=== PATIENT | female | born 1965 | race Caucasian/White ===

== ENCOUNTER 2019-09-27 21:35 | Emergency (ER) | payer MEDICAID ==
[~2019-09-27] VITALS: Ht 160 cm; Wt 79.4 kg
--- NOTE | 2019-09-27 21:35 | NUR ---
in bedside for MSE
--- NOTE | 2019-09-27 21:35 | NUR ---
Patient arrived on unit for chest pain as well pain in her head and eyes, EKG done and given to MD, IV place in right forearm 20 g, patient states pain level 10/10
[2019-09-27] MEDS ORDERED: HYDROCODONE/APAP 5-325MG TABLET PO ONE (21:45)
[2019-09-27] MEDS ORDERED: NITROGLYCERIN OINT 1 GM PACKET TP ONE ×2 (21:45→21:51)
[2019-09-27] MEDS ORDERED: ASPIRIN 81 MG TAB.CHEW PO ONE (21:45)
[2019-09-27] MEDS ORDERED: LORAZEPAM 0.5 MG TABLET PO ONE (21:45)
[2019-09-27] MEDS ORDERED: NITROGLYCERIN 0.4 MG/TAB BOTTLE SL ONE ×2 (21:45→21:50)
[2019-09-27] MEDS ORDERED: ASPIRIN 81 MG TAB.CHEW ONE (21:49)
[2019-09-27] MEDS ORDERED: HYDROCODONE/APAP 5-325MG TABLET ONE (21:50)
[2019-09-27] MEDS ORDERED: LORAZEPAM 1 MG TABLET ONE (21:50)
[2019-09-27 22:02] LABS: BASOPHILS % (AUTO) 0.5 % (0.0-2.0); EOSINOPHILS # (AUTO) 0.1 K/uL (0.0-0.7); EOSINOPHILS % (AUTO) 1.6 % (0.0-7.0); HEMATOCRIT 42.6 % (31.2-41.9); HEMOGLOBIN 13.6 g/dL (10.9-14.3); LYMPHOCYTES # (AUTO) 3.6 K/uL (20.0-40.0); MEAN CORPUSCULAR HEMOGLOBIN 26.1 uug (24.7-32.8); MEAN CORPUSCULAR HGB CONC 32 g/dL (32.3-35.6); MEAN CORPUSCULAR VOLUME 81.5 fL (75.5-95.3); MONOCYTES # (AUTO) 0.6 K/uL (2.0-10.0); NEUTROPHILS # (AUTO) 4.8 K/uL (1.8-8.9); NEUTROPHILS % (AUTO) 51.9 % (38.5-71.5); PLATELET COUNT (AUTO) 263 K/uL (179-408); RED BLOOD CELL COUNT(AUTO) 5.23 MIL/uL (3.63-4.92); WHITE BLOOD COUNT (AUTO) 9.2 K/uL (3.8-11.8)
[2019-09-27] MEDS ORDERED: INSU100I34 SQ (22:05)
[2019-09-27] MEDS ORDERED: INSU100I26 SQ (22:05)
[2019-09-27] MEDS ORDERED: ALBU6.7H9 INH (22:05)
[2019-09-27] MEDS ORDERED: ASPI81TA31 PO (22:05)
[2019-09-27] MEDS ORDERED: LOSA100T31 PO (22:05)
[2019-09-27] MEDS ORDERED: AMLO10TA7 PO (22:05)
[2019-09-27] MEDS ORDERED: ONDANSETRON 4 MG/2 ML VIAL ONE (22:08)
--- NOTE | 2019-09-27 22:11 | NUR ---
Vitals with in normal limits, 124/74, 99% on room air, 84 heart rate, 20 respirations
[2019-09-27] MEDS ORDERED: ONDANSETRON 4 MG/2 ML VIAL IV ONE (22:15)
--- NOTE | 2019-09-27 22:16 | NUR ---
x3 doses of nitrostat given sublingual without relief from chest pain
[2019-09-27] MEDS ORDERED: MORPHINE SULFATE 4 MG/1 ML DISP.SYRIN ONE (22:22)
[2019-09-27 22:25] LABS: BILIRUBIN,DIRECT 0.1 mg/dL (0.0-0.2); BILIRUBIN,TOTAL 0.6 mg/dL (0.2-1.0); CREATININE 1.7 mg/dL (0.6-1.3); POTASSIUM 4.1 mmol/L (3.5-5.1); TOTAL PROTEIN, SERUM 7.4 g/dL (6.4-8.2)
[2019-09-27] MEDS ORDERED: diphenhydrAMINE 50 MG/1 ML VIAL ONE (22:26)
[2019-09-27] MEDS ORDERED: MORPHINE SULFATE 4 MG/1 ML DISP.SYRIN IV ONE (22:30)
--- NOTE | 2019-09-27 22:35 | NUR ---
states pain level is 8/, B/P: 124/75
--- NOTE | 2019-09-27 22:47 | NUR ---
Patient noted resting in bed with eyes closed, no facial cues of pain at this time, no signs of distress noted
[2019-09-27] MEDS ORDERED: diphenhydrAMINE 50 MG/1 ML VIAL IV ONE (23:00)
--- NOTE | 2019-09-27 23:07 | NUR ---
Patient continues to rest in bed without any distress or complaints of pain at this time
[2019-09-27] MEDS ORDERED: HYDROMORPHONE HCL 2 MG TABLET PO ONE (23:15)
[2019-09-27] MEDS ORDERED: HYDROMORPHONE HCL 2 MG TABLET ONE (23:26)
--- NOTE | 2019-09-27 23:48 | NUR ---
Patient left with Radiology for CT at this time
--- NOTE | 2019-09-28 00:15 | NUR ---
Patient returned from CT at this time, noted resting with eyes closed, no facial cues of pain, no signs of distress
--- NOTE | 2019-09-28 01:32 | NUR ---
Patient discharged to home in stable condition. Noted ambulating in stable manner, daughter outside to drive her home. all belongings taken with patient. Rx given. Instructed not to drive while taking these medications. No signs of distress on discharge. Instructed to follow up with PCP. Written and verbal after care instructions given. Patient verbalizes understanding of instructions. Stressed follow up or return to ER for worsening s/s.
[2019-09-28 01:38] VITALS: BP 114/72
== END 2019-09-28 01:30 | disposition home or self-care (01) ==
LOC: ER 21:35
DX: R07.9 Chest pain, unspecified (principal); I25.2 Old myocardial infarction; I10 Essential (primary) hypertension; Z88.6 Allergy status to analgesic agent; E78.00 Pure hypercholesterolemia, unspecified; Z88.0 Allergy status to penicillin; G89.29 Other chronic pain; Z76.5 Malingerer [conscious simulation]; F17.200 Nicotine dependence, unspecified, uncomplicated; E11.9 Type 2 diabetes mellitus without complications; Z79.4 Long term (current) use of insulin; Z79.82 Long term (current) use of aspirin; Z79.899 Other long term (current) drug therapy; F43.9 Reaction to severe stress, unspecified
CPT/HCPCS: 36415 ×2; 70450; 71045; 80048; 80076; 82962; 83880; 84484 ×2; 85025; 85379; 85730; 93005; 96374; 96375; 99285; J1200; J2270; J2405; 70030-TC; A4663

== ENCOUNTER 2020-05-16 21:40 | Emergency (ER) | payer MEDICAID ==
[~2020-05-16] VITALS: Ht 160 cm; Wt 77.1 kg
[~2020-05-16 21:40] MED LIST: ALBU6.7H9 INH; AMLO10TA59 PO; ASPI81TA31 PO; INSU100I26 SQ; INSU100I34 SQ; LOSA100T31 PO
[2020-05-16] MEDS ORDERED: IV NORMAL SALINE 1000 ML BAG IV ONE (22:30)
[2020-05-16 23:03] LABS: BASOPHILS # (AUTO) 0.1 K/uL (0.0-8.0); BASOPHILS % (AUTO) 0.8 % (0.0-2.0); EOSINOPHILS # (AUTO) 0.4 K/uL (0.0-0.7); EOSINOPHILS % (AUTO) 5.2 % (0.0-7.0); HEMATOCRIT 41.9 % (31.2-41.9); HEMOGLOBIN 13.6 g/dL (10.9-14.3); LYMPHOCYTES # (AUTO) 3.1 K/uL (20.0-40.0); LYMPHOCYTES % (AUTO) 42.1 % (20.5-51.5); MEAN CORPUSCULAR HEMOGLOBIN 25.9 uug (24.7-32.8); MEAN CORPUSCULAR HGB CONC 33 g/dL (32.3-35.6); MEAN CORPUSCULAR VOLUME 79.6 fL (75.5-95.3); MONOCYTES # (AUTO) 0.5 K/uL (2.0-10.0); MONOCYTES % (AUTO) 6.1 % (0.0-11.0); NEUTROPHILS # (AUTO) 3.4 K/uL (1.8-8.9); NEUTROPHILS % (AUTO) 45.8 % (38.5-71.5); PLATELET COUNT (AUTO) 351 K/uL (179-408); RED BLOOD CELL COUNT(AUTO) 5.26 MIL/uL (3.63-4.92); WHITE BLOOD COUNT (AUTO) 7.4 K/uL (3.8-11.8)
[2020-05-16 23:14] LABS: CREATININE 1.1 mg/dL (0.6-1.3); POTASSIUM 4.3 mmol/L (3.5-5.1)
[2020-05-16 23:20] LABS: BILIRUBIN,DIRECT 0.1 mg/dL (0.0-0.2); BILIRUBIN,TOTAL 0.4 mg/dL (0.2-1.0); TOTAL PROTEIN, SERUM 8.4 g/dL (6.4-8.2)
[2020-05-16] MEDS ORDERED: IV NORMAL SALINE 250 ML IV ONE (23:56)
[2020-05-16] MEDS ORDERED: SWABABLE VALVE TRANSFER SET EA MC ONE (23:56)
[2020-05-16] MEDS ORDERED: IOHEXOL 300MG/ML 100 ML INFUS..BTL ONE (23:56)
[2020-05-17] MEDS ORDERED: PANTOPRAZOLE SODIUM 40 MG VIAL ONE (00:58)
[2020-05-17] MEDS ORDERED: diphenhydrAMINE 50 MG/1 ML VIAL IV ONE (01:00)
[2020-05-17] MEDS ORDERED: PANTOPRAZOLE SODIUM 40 MG VIAL IV ONE (01:00)
[2020-05-17] MEDS ORDERED: ONDANSETRON 4 MG/2 ML VIAL IV ONE (01:00)
[2020-05-17] MEDS ORDERED: MORPHINE SULFATE 2 MG/1 ML DISP.SYRIN IV ONE ×2 (01:00→02:15)
[2020-05-17] MEDS ORDERED: ONDANSETRON 4 MG/2 ML VIAL ONE (01:14)
[2020-05-17] MEDS ORDERED: diphenhydrAMINE 50 MG/1 ML VIAL ONE (01:14)
[2020-05-17] MEDS ORDERED: MORPHINE SULFATE 2 MG/1 ML DISP.SYRIN ONE ×2 (01:14→02:22)
[2020-05-17] MEDS ORDERED: METO-295 PO (02:26)
[2020-05-17] MEDS ORDERED: PANT40TA2 PO (02:26)
[2020-05-17] MEDS ORDERED: HYDR-4209 PO (02:26)
--- NOTE | 2020-05-17 02:53 | NUR ---
IV DISCONTINUED, CATHETER INTACT. Patient discharged to home in stable condition. Written and verbal after care instructions given. Patient verbalizes understanding of instructions. Stressed follow up or return to ER for worsening s/s.
[2020-05-17 02:54] VITALS: BP 150/94
== END 2020-05-17 02:54 | disposition home or self-care (01) ==
LOC: ER 21:46
DX: R10.11 Right upper quadrant pain (principal); R11.10 Vomiting, unspecified; E87.1 Hypo-osmolality and hyponatremia; E11.65 Type 2 diabetes mellitus with hyperglycemia; Z79.4 Long term (current) use of insulin
CPT/HCPCS: 74177; 76705; 80048; 80076; 83605; 83690; 85025; 93005; 96361; 96374; 96375; 96376; 99285; C9113; J1200; J2270 ×2; J2405; Q9967; J7050

== ENCOUNTER 2020-06-03 00:49 | Emergency (ER) | payer MEDICAID, OTHER ==
[~2020-06-03] VITALS: Ht 160 cm; Wt 77.1 kg
[~2020-06-03 00:49] MED LIST changes: +HYDR-4209 PO; +METO-295 PO; +PANT40TA2 PO
--- NOTE | 2020-06-03 00:55 | NUR ---
Patient came in to the ER with her daughter complaining of chest pain, high blood sugar, and a draining cyst. Patient is A/O x3 and seems to be concerned over her condition. VS are stable, blood sugar reads "HI" on the accucheck indicitave of a BS possibly over 600. Sinus rhythm on the monitor. The cyst is located on her left lower abdomen within the abdominal fold, it is open and weaping fluid.
[2020-06-03] MEDS ORDERED: LIDOCAINE 2%-EPI 1:100,000 20 ML VIAL ONE (01:55)
[2020-06-03 01:56] LABS: *BILIRUBIN,URIN NEGATIVE (NEGATIVE); *CLARITY,URINE CLEAR (CLEAR); *KETONES,URINE NEGATIVE (NEGATIVE); *UROBILINOGEN,URINE 0.2 E.U./dl (NORMAL); LEUKOCYTE ESTERASE ,URINE 1+ (NEGATIVE); NITRITE, URINE NEGATIVE (NEGATIVE)
[2020-06-03 01:57] LABS: BASOPHILS # (AUTO) 0.1 K/uL (0.0-8.0); BASOPHILS % (AUTO) 1.4 % (0.0-2.0); EOSINOPHILS # (AUTO) 0.4 K/uL (0.0-0.7); EOSINOPHILS % (AUTO) 4.2 % (0.0-7.0); HEMATOCRIT 39.1 % (31.2-41.9); HEMOGLOBIN 12.6 g/dL (10.9-14.3); LYMPHOCYTES % (AUTO) 29.4 % (20.5-51.5); MEAN CORPUSCULAR HEMOGLOBIN 26.2 uug (24.7-32.8); MEAN CORPUSCULAR HGB CONC 32 g/dL (32.3-35.6); MEAN CORPUSCULAR VOLUME 81.5 fL (75.5-95.3); MONOCYTES # (AUTO) 0.7 K/uL (2.0-10.0); MONOCYTES % (AUTO) 6.6 % (0.0-11.0); NEUTROPHILS % (AUTO) 58.4 % (38.5-71.5); PLATELET COUNT (AUTO) 248 K/uL (179-408); RED BLOOD CELL COUNT(AUTO) 4.79 MIL/uL (3.63-4.92); WHITE BLOOD COUNT (AUTO) 10.3 K/uL (3.8-11.8)
[2020-06-03 01:58] LABS: MAGNESIUM 1.8 mg/dL (1.8-2.4)
[2020-06-03 02:03] LABS: CREATININE 1.2 mg/dL (0.6-1.3)
[2020-06-03 02:07] LABS: *BLOOD, URINE TRACE (NEGATIVE); UGLUCOSE 2+ (NEGATIVE)
[2020-06-03 02:08] LABS: *COLOR,URINE STRAW (YELLOW)
[2020-06-03 02:12] LABS: BILIRUBIN,DIRECT 0.1 mg/dL (0.0-0.2); BILIRUBIN,TOTAL 0.3 mg/dL (0.2-1.0); TOTAL PROTEIN, SERUM 7.4 g/dL (6.4-8.2)
[2020-06-03 02:17] LABS: BACTERIA,URINE MODERATE /HPF (NONE SEEN); SQUAMOUS EPITHELIAL CELL,UR MODERATE /HPF (NONE SEEN); WBC,URINE 20-50 /HPF (0-3)
[2020-06-03] MEDS: IV NORMAL SALINE 1000 ML BAG IV ONE ×2 (02:17→03:50)
[2020-06-03] MEDS: LIDOCAINE 2%-EPI 1:100,000 20 ML VIAL IJ ONE (02:17)
[2020-06-03] MEDS: ASPIRIN 81 MG TAB.CHEW PO ONE (02:20)
--- NOTE | 2020-06-03 02:20 | NUR ---
Dr. Pizano completed a lancing of the cyst on the lower left abdomen. Minimal blood loss through the procedure. Wound packed with iodoform packing and wound cleaned with chlorhexadine and dressed with 4x4 gauze and taped with paper tape. Patient tolerated procedure without complications or discomfort.
[2020-06-03] MEDS ORDERED: ASPIRIN EC 81 MG TABLET.DR PO ONE (02:26)
[2020-06-03] MEDS: IV NORMAL SALINE 500 ML BAG IV ONE (02:30)
[2020-06-03] MEDS ORDERED: OXYCODONE/APAP 5-325 MG TABLET ONE (02:38)
[2020-06-03] MEDS ORDERED: PIPERACILLIN SODIUM/TAZO 3.375 GM VIAL ONE (02:38)
[2020-06-03] MEDS: PIPERACILLIN SODIUM/TAZOBACTAM 3.375 G in IV DEXTROSE 5% 50 ML IV ONE (02:49)
[2020-06-03] MEDS: OXYCODONE/APAP 5-325 MG TABLET PO ONE ×2 (02:49→03:00)
--- NOTE | 2020-06-03 02:55 | NUR ---
Went over medication reconcilation with patient.
[2020-06-03] MEDS ORDERED: AMOX-430 PO (04:40)
[2020-06-03] MEDS ORDERED: OXYC-128 PO (04:40)
[2020-06-03] MEDS ORDERED: ONDA4TAB5 PO (04:49)
--- NOTE | 2020-06-03 04:50 | NUR ---
Patient discharged to home in stable condition. Written and verbal wound care instructions given. Patient verbalizes understanding of instructions. Stressed follow up or return to ER for worsening s/s. Patient discharged without SOB or signs of distress. Dr. Pizano deemed third liter of normal saline not necessary due to the improvint condition of the patient, and cleared he patient for discharge.
[2020-06-03 05:06] VITALS: BP 161/111
== END 2020-06-03 04:50 | disposition home or self-care (01) ==
LOC: ER 00:58
DX: L02.211 Cutaneous abscess of abdominal wall (principal); E11.65 Type 2 diabetes mellitus with hyperglycemia; Z79.4 Long term (current) use of insulin; J45.909 Unspecified asthma, uncomplicated; K21.9 Gastro-esophageal reflux disease without esophagitis; E78.00 Pure hypercholesterolemia, unspecified; Z88.5 Allergy status to narcotic agent; Z88.0 Allergy status to penicillin; F17.200 Nicotine dependence, unspecified, uncomplicated; R07.89 Other chest pain; R94.31 Abnormal electrocardiogram [ECG] [EKG]
CPT/HCPCS: 10060; 36415; 71045; 80048; 80076; 81001; 82009; 82962 ×2; 83735; 83880; 84484; 85025; 87040; 87070; 87077; 87086; 93005; 96361; 96365; 99285; J2543; J7060; 70030-TC; A4663; J7030

== ENCOUNTER 2021-04-19 18:32 | Emergency (ER) | payer OTHER ==
[~2021-04-19] VITALS: Ht 160 cm; Wt 81.6 kg
[~2021-04-19 18:32] MED LIST changes: +AMOX-430 PO; +ONDA4TAB5 PO; +OXYC-128 PO
[2021-04-19] MEDS: LIDOCAINE 1%-EPI 1:100,000 20 ML VIAL IJ ONE (20:00)
--- NOTE | 2021-04-19 21:00 | NUR ---
Dr Huerta into do I/D with female staff nurse assisting.
[2021-04-19] MEDS ORDERED: FAMO-132 PO (21:56)
[2021-04-19] MEDS ORDERED: SULF1TAB48 PO (21:56)
[2021-04-19] MEDS ORDERED: GABA800T11 PO (21:56)
--- NOTE | 2021-04-19 22:01 | NUR ---
Patient discharged to home in stable condition. Written and verbal after care instructions given. Patient verbalizes understanding of instructions. Stressed follow up or return to ER for worsening s/s.
[2021-04-19 22:02] VITALS: BP 150/92
== END 2021-04-19 22:02 | disposition home or self-care (01) ==
LOC: ER 18:34
DX: L02.215 Cutaneous abscess of perineum (principal); E11.42 Type 2 diabetes mellitus with diabetic polyneuropathy; E78.00 Pure hypercholesterolemia, unspecified; Z79.4 Long term (current) use of insulin; Z79.899 Other long term (current) drug therapy; Z88.0 Allergy status to penicillin; Z88.6 Allergy status to analgesic agent; K21.9 Gastro-esophageal reflux disease without esophagitis; J45.909 Unspecified asthma, uncomplicated; F17.200 Nicotine dependence, unspecified, uncomplicated; R03.0 Elevated blood-pressure reading, without diagnosis of hypertension
CPT/HCPCS: 56405; 99283; J3490; A4663

== ENCOUNTER 2021-04-21 19:31 | Emergency (ER) | payer OTHER ==
[~2021-04-21] VITALS: Ht 160 cm; Wt 81.6 kg
[~2021-04-21 19:31] MED LIST changes: +FAMO-132 PO; +GABA800T11 PO; +SULF1TAB48 PO
--- NOTE | 2021-04-21 20:10 | NUR ---
Pt came to ER for abcess check in pelvic region. Able to ambulate without assistance. Speech clear, speaks in complete sentences. Denies SOB or chest pain.
--- NOTE | 2021-04-21 20:22 | NUR ---
Dr. Clifford at bedside for MSE
[2021-04-21] MEDS ORDERED: CEPH500T PO (20:45)
[2021-04-21] MEDS ORDERED: ALBU0.63 NEB (20:45)
--- NOTE | 2021-04-21 20:45 | NUR ---
JEAN CROW FOR PERINEAL WOUND CARE/TX.
--- NOTE | 2021-04-21 21:10 | NUR ---
Patient discharged to home in stable condition. Written and verbal after care instructions given. Patient verbalizes understanding of instructions. Stressed follow up or return to ER for worsening s/s. No changes in LOC. Wound care completed, covered in clean, dry dressing.
[2021-04-21 21:18] VITALS: BP 160/86
[2021-04-21] MEDS ORDERED: LIDOCAINE 1%-EPI 1:100,000 20 ML VIAL IJ ONE (23:15)
== END 2021-04-21 21:19 | disposition home or self-care (01) ==
LOC: ER 19:32
DX: J45.909 Unspecified asthma, uncomplicated (principal); F17.210 Nicotine dependence, cigarettes, uncomplicated; L02.215 Cutaneous abscess of perineum; Z88.6 Allergy status to analgesic agent; Z88.1 Allergy status to other antibiotic agents; E11.9 Type 2 diabetes mellitus without complications; Z79.4 Long term (current) use of insulin
CPT/HCPCS: A4663; J3490

== ENCOUNTER 2021-04-23 20:23 | Emergency (ER) | payer OTHER ==
[~2021-04-23] VITALS: Ht 160 cm; Wt 81.6 kg
[~2021-04-23 20:23] MED LIST changes: +ALBU0.63 NEB; +CEPH500T PO
[2021-04-23] MEDS ORDERED: ALBUTEROL SULFATE 2.5 MG/3 ML NEBU NEB ONE (21:00)
[2021-04-23] MEDS ORDERED: IPRATROPIUM BROMIDE 0.5 MG/2.5 ML NEBU NEB ONE (21:00)
--- NOTE | 2021-04-23 21:04 | NUR ---
asssumed care of pt, who c/o increased work of breathing after inhaling "dust". reports discoloured sputum and productive cough. pt on room air, speaking in full sentences. pt evaluated by MD and RN, treatment ordered, RT notified. placed on continuous pulse oximetry. pt is alert and oriented, NAD noted
[2021-04-23] MEDS ORDERED: ALBU2.5V38 NEB (21:17)
[2021-04-23] MEDS ORDERED: IPRATROPIUM BROMIDE 0.5 MG/2.5 ML NEBU ONE (21:23)
[2021-04-23] MEDS ORDERED: ALBUTEROL SULFATE 2.5 MG/3 ML NEBU ONE (21:23)
--- NOTE | 2021-04-23 21:54 | NUR ---
breathing TX completed, pt reports substantial improvement in breathing after administration by RT of MD ordered medications, continues to speakin full sentences, without obvious distress while on room air. MD to bedside to reevaluate pt. pt would like abcess evaluated, performed in the prescence of female chaperion
[2021-04-23 22:03] VITALS: BP 142/76
--- NOTE | 2021-04-23 22:03 | NUR ---
Patient discharged to home in stable condition. MD discussed, at length with pt and provided written after care instructions, including resources to better manage her diabetes, as well as ACI for her primary compliant of lung discomfort. MD and RN stressed importance of follow up after visit with PMD and when to return to ER for worsening S/S. pt verbalised understanding of all instructions given and is able to identify in written instruction where to find information provided. pt ambulated out of dept with steady gait under her own power, NAD noted
== END 2021-04-23 22:08 | disposition home or self-care (01) ==
LOC: ER 20:25
DX: J98.01 Acute bronchospasm (principal); L02.215 Cutaneous abscess of perineum; E11.9 Type 2 diabetes mellitus without complications; Z79.4 Long term (current) use of insulin; F17.210 Nicotine dependence, cigarettes, uncomplicated; E78.00 Pure hypercholesterolemia, unspecified; Z79.899 Other long term (current) drug therapy; Z88.6 Allergy status to analgesic agent; Z88.1 Allergy status to other antibiotic agents
CPT/HCPCS: A4663; J3590

== ENCOUNTER 2021-07-15 22:05 | Emergency (ER) | payer OTHER ==
[~2021-07-15] VITALS: Ht 160 cm; Wt 81.6 kg
[~2021-07-15 22:05] MED LIST changes: +ALBU2.5V38 NEB
--- NOTE | 2021-07-15 22:34 | NUR ---
Dr. Soliz at bedside for MSE.
--- NOTE | 2021-07-15 23:07 | NUR ---
Xray at bedside.
[2021-07-15 23:29] LABS: HEMATOCRIT 41.6 % (31.2-41.9); MEAN CORPUSCULAR HEMOGLOBIN 27.9 uug (24.7-32.8); MEAN CORPUSCULAR VOLUME 83.9 fL (75.5-95.3); PLATELET COUNT (AUTO) 228 K/uL (179-408)
[2021-07-15 23:37] LABS: ALANINE AMINOTRANSFERASE 26 U/L (14-59); ALKALINE PHOSPHATASE 136 U/L (50-136); ASPARTATE AMINOTRANSFERASE 13 U/L (15-37); BILIRUBIN,TOTAL 0.3 mg/dL (0.2-1.0); CARBON DIOXIDE 26 mmol/L (21-32); CHLORIDE 100 mmol/L (98-107); CREATININE 1.2 mg/dL (0.6-1.3); POTASSIUM 4.2 mmol/L (3.5-5.1); TOTAL PROTEIN, SERUM 6.6 g/dL (6.4-8.2); UREA NITROGEN, BLOOD 14 mg/dL (7-18)
[2021-07-15 23:59] LABS: GLUCOSE 443 mg/dL (74-106)
[2021-07-16] MEDS ORDERED: INSULIN REGULAR, HUMAN 300 UNIT/3 ML VIAL SQ ONE
[2021-07-16] MEDS ORDERED: HYDROCODONE/APAP 10-325 MG TABLET PO ONE
--- NOTE | 2021-07-16 00:11 | NUR ---
Ultrasound at bedside.
[2021-07-16] MEDS ORDERED: HYDROCODONE/APAP 10-325 MG TABLET ONE (00:12)
[2021-07-16] MEDS ORDERED: INSULIN REGULAR, HUMAN 300 UNIT/3 ML VIAL ONE (00:13)
--- NOTE | 2021-07-16 01:03 | NUR ---
Patient does not wish to proceed with medical care recommended by Dr. Soliz. Patient given information related to possible complications, up to and including , which could occur as a result of leaving the hospital at this time. Patient verbalizes understanding of risks involved due to leaving against medical advice. Patient has signed AMA form.
[2021-07-16] MEDS ORDERED: VALA10002 PO (01:14)
[2021-07-16] MEDS ORDERED: VALACYCLOVIR HCL 500 MG TABLET PO ONE (01:15)
[2021-07-16] MEDS ORDERED: VALACYCLOVIR HCL 500 MG TABLET ONE (01:16)
[2021-07-16] MEDS ORDERED: VALA100026 PO (02:28)
[2021-07-16 02:34] VITALS: BP 148/90
== END 2021-07-16 02:34 | disposition left against medical advice (07) ==
LOC: ER 22:07
DX: R60.0 Localized edema (principal); B00.1 Herpesviral vesicular dermatitis; R07.81 Pleurodynia; Z20.822 Contact with and (suspected) exposure to COVID-19; K80.20 Calculus of gallbladder without cholecystitis without obstruction; I10 Essential (primary) hypertension; Z53.29 Procedure and treatment not carried out because of patient's decision for other reasons; E66.01 Morbid (severe) obesity due to excess calories; Z68.31 Body mass index [BMI] 31.0-31.9, adult; F17.210 Nicotine dependence, cigarettes, uncomplicated; E11.65 Type 2 diabetes mellitus with hyperglycemia; Z79.4 Long term (current) use of insulin; Z79.82 Long term (current) use of aspirin; Z79.899 Other long term (current) drug therapy; E78.00 Pure hypercholesterolemia, unspecified
CPT/HCPCS: 36415; 71111; 76705; 80053; 82009; 84484; 85025; 87426; 93005; 96372; 99285; J1815

== ENCOUNTER 2023-04-11 19:18 | Emergency (ER) | payer MEDICAID, OTHER ==
[~2023-04-11] VITALS: Ht 160 cm; Wt 73.9 kg
[~2023-04-11 19:18] MED LIST changes: +VALA10002 PO; +VALA100026 PO
[2023-04-11] MEDS ORDERED: KETOROLAC TROMETHAMINE 15 MG INJ IVP ONE (20:30)
[2023-04-11 20:46] LABS: BASOPHILS # (AUTO) 0.2 K/UL (0.0-0.2); BASOPHILS % (AUTO) 3.6 % (0.0-2.0); EOSINOPHILS % (AUTO) 16.2 % (0.0-7.0); HEMATOCRIT 37.8 % (31.2-41.9); HEMOGLOBIN 12.5 g/dL (10.9-14.3); LYMPHOCYTES # (AUTO) 0.9 K/uL (0.8-4.8); LYMPHOCYTES % (AUTO) 14.7 % (20.5-51.5); MEAN CORPUSCULAR HEMOGLOBIN 27.3 uug (24.7-32.8); MEAN CORPUSCULAR HGB CONC 33 g/dL (32.3-35.6); MEAN CORPUSCULAR VOLUME 82.6 fL (75.5-95.3); MONOCYTES # (AUTO) 0.3 K/uL (0.1-1.30); MONOCYTES % (AUTO) 4.4 % (0.0-11.0); NEUTROPHILS # (AUTO) 3.9 K/uL (1.8-8.9); NEUTROPHILS % (AUTO) 61.1 % (38.5-71.5); PLATELET COUNT (AUTO) 319 K/uL (179-408); RED BLOOD CELL COUNT(AUTO) 4.57 MIL/uL (3.63-4.92); RED CELL DISTRIBUTION WIDTH 13.3 % (12.3-17.7); WHITE BLOOD COUNT (AUTO) 6.4 K/uL (3.8-11.8)
[2023-04-11] MEDS ORDERED: IBUPROFEN 600 MG TABLET ONE (20:56)
[2023-04-11] MEDS ORDERED: CLINDAMYCIN HCL 300 MG CAPSULE ONE (20:56)
[2023-04-11] MEDS: IBUPROFEN 600 MG TABLET PO ONE (20:58)
[2023-04-11] MEDS ORDERED: SWABABLE VALVE TRANSFER SET EA MC ONE (21:00)
[2023-04-11] MEDS ORDERED: IV NORMAL SALINE 250 ML IV ONE (21:00)
[2023-04-11] MEDS ORDERED: IOHEXOL 300MG/ML 100 ML INFUS..BTL ONE (21:00)
[2023-04-11 21:01] LABS: CALCIUM 9.6 mg/dL (8.5-10.1); CREATININE 1.5 mg/dL (0.6-1.3); POTASSIUM 4.3 mmol/L (3.5-5.1)
[2023-04-11 21:03] LABS: DIFFERENTIAL COMMENT 1
[2023-04-11] MEDS: CLINDAMYCIN HCL 150 MG CAPSULE PO ONE (21:03)
[2023-04-11] MEDS ORDERED: LIDOCAINE HCL 1% 20 ML VIAL ONE (21:05)
[2023-04-11] MEDS ORDERED: KETOROLAC TROMETHAMINE 15 MG INJ ONE (21:05)
[2023-04-11] MEDS ORDERED: CEFTRIAXONE 1 G VIAL ONE (21:05)
[2023-04-11 21:06] LABS: ALBUMIN 3.2 g/dL (3.4-5.0); BILIRUBIN,TOTAL 0.6 mg/dL (0.2-1.0); TOTAL PROTEIN, SERUM 7.9 g/dL (6.4-8.2)
[2023-04-11] MEDS: CEFTRIAXONE 1 G VIAL IM ONE (21:26)
[2023-04-11] MEDS: KETOROLAC TROMETHAMINE 15 MG INJ IM ONE (21:26)
[2023-04-11] MEDS ORDERED: OXYCODONE HCL 5 MG TABLET ONE (22:59)
[2023-04-11] MEDS: OXYCODONE HCL 5 MG TABLET PO ONE (23:00)
[2023-04-11] MEDS ORDERED: CLIN-118 PO (23:21)
[2023-04-11 23:23] VITALS: BP 157/86; O2SAT 100
== END 2023-04-11 23:24 | disposition left against medical advice (07) ==
LOC: ER 19:20
DX: N61.1 Abscess of the breast and nipple (principal); J45.909 Unspecified asthma, uncomplicated; E11.9 Type 2 diabetes mellitus without complications; E78.00 Pure hypercholesterolemia, unspecified; F17.200 Nicotine dependence, unspecified, uncomplicated; Z79.899 Other long term (current) drug therapy; Z88.1 Allergy status to other antibiotic agents
CPT/HCPCS: 99284; 80053; 85025; 87040; 36415; 96372 ×2; 83605; J0696; J1885; J3490; A4606; A4663; Q9967

== ENCOUNTER 2024-04-03 02:39 | Emergency (ER) | payer MEDICAID ==
[~2024-04-03] VITALS: Ht 160 cm; Wt 63.5 kg
[~2024-04-03 02:39] MED LIST changes: +CLIN-118 PO
[2024-04-03 02:43] VITALS: O2SAT 99
[2024-04-03] MEDS ORDERED: CEPH500C2 PO (03:14)
[2024-04-03] MEDS ORDERED: TDAP DIPH,PERTUSS,TET VAC/PF 0.5 ML DISP.SYRIN IM ONE (03:18)
[2024-04-03] MEDS ORDERED: LIDOCAINE HCL 1% 20 ML VIAL ONE (03:18)
[2024-04-03] MEDS ORDERED: CEFTRIAXONE 500 MG VIAL ONE (03:18)
[2024-04-03] MEDS: CEFTRIAXONE 500 MG VIAL IM ONE (03:28)
[2024-04-03] MEDS: TDAP DIPH,PERTUSS,TET VAC/PF 0.5 ML DISP.SYRIN IM ONE (03:29)
== END 2024-04-03 03:32 | disposition home or self-care (01) ==
LOC: ER 02:55
DX: H60.12 Cellulitis of left external ear (principal); R60.9 Edema, unspecified; E11.9 Type 2 diabetes mellitus without complications; E78.00 Pure hypercholesterolemia, unspecified; F17.200 Nicotine dependence, unspecified, uncomplicated; K21.9 Gastro-esophageal reflux disease without esophagitis; Z79.4 Long term (current) use of insulin; Z79.624 Long term (current) use of inhibitors of nucleotide synthesis; Z79.82 Long term (current) use of aspirin; Z79.899 Other long term (current) drug therapy; Z88.5 Allergy status to narcotic agent; Z88.7 Allergy status to serum and vaccine; Z98.890 Other specified postprocedural states
CPT/HCPCS: 99284; 90715; 96372; 90471; J0696; J3490; A4606; A4663